=== PATIENT | female | born 1990 | race Caucasian/White ===

== ENCOUNTER 2016-09-29 18:31 | Emergency (ER) | payer BC ==
--- NOTE | 2016-09-30 00:28 | ER ---
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 Allegedly, the patient was standing up and was not answering the question and closed eyes, altered mental status. They denied any fall or trauma. Per EMS, when they got there, the patient was able to stand and did not fall but kept the eyes closed. In the ER, the patient opened the eyes and answered the questions. She is alert and oriented to person, place, and time. She said she had 1 episode of similar incident in the past, which she could not recall what time it was. The patient denies taking any medications or using any drugs. The patient states she could not recall though seconds that she was standing up. The patient states she has a history of endometriosis and bipolar and has been followed up by the primary doctor. In the ER, there were no signs of trauma. Physical examination was noncontributory. Please refer to T-sheet. Prolactin level was normal. Still, there is a chance that the patient has absence seizure versus other causes. The patient was discharged to home with advise to follow up with the primary care doctor and not to use any machinery or driving until cleared by the primary doctor. Jeferson Li MD/ em JOB #: [id number] CC: Marcelo Mercer MD, Attending Physician UNKNOWN, Family Physician
== END 2016-09-29 19:55 | disposition home or self-care (01) ==
LOC: ER 18:31
DX: R41.82 Altered mental status, unspecified (principal); Z88.1 Allergy status to other antibiotic agents; Z79.899 Other long term (current) drug therapy

== ENCOUNTER 2016-10-24 23:13 | Emergency (ER) | payer BC ==
--- NOTE | 2016-10-25 22:59 | ER ---
ADMIT: 10/24/2016 RM/LOC: ER [facility] MR#: [id number] [address] [facility] [address] [place], [place] [address] HERI SOLIS [address] [facility] [address] [place] [address] Emergency Room Report SEX: F AGE: 26 : 1990 DATE: 10/24/2016 TIME: 2313 Please refer to my T-sheet for complete H and P. HISTORY OF PRESENT ILLNESS: Briefly, the patient is a 26-year-old, who comes in with constipation. States that she had a laparoscopic hysterectomy done 9- [address] Gee, it went well. She has been taking hydrocodone ever since every 4 hours and now she is constipated and her abdomen is cramping. No vomiting. She has been a little nauseous. She has tried a stool softener today, did not help and comes in for evaluation. PHYSICAL EXAMINATION: VITAL SIGNS: Stable. She is afebrile. HEENT: Grossly normal. ABDOMEN: Soft. Postop incisions are healing well. Really nondistended, just diffusely tender. Does not localize. No rebound or guarding. EMERGENCY DEPARTMENT COURSE: I had a long discussion with her. I talked to her about the needing to titrate off her hydrocodone. Gave her a bottle of mag citrate. She will try this tonight, see how it looks in the morning, may repeat in the morning and if not, she can always come back. ASSESSMENT: 1. Constipation. 2. Ten days postop hysterectomy. PLAN: Fluids, return if worse. Mag citrate, repeat in the morning. Decrease her hydrocodone and use Tylenol instead. Follow up with Dr. Gee. Donny Perales MD/ em JOB #: [id number] CC: Donny Perales MD, Attending Physician MD Shaina Valentino MD
== END 2016-10-25 00:08 | disposition home or self-care (01) ==
LOC: ER 23:13
DX: K59.00 Constipation, unspecified (principal); F31.9 Bipolar disorder, unspecified; Z90.710 Acquired absence of both cervix and uterus